=== PATIENT | female | born 1985 | race Caucasian/White ===

== ENCOUNTER → 2019-01-23 09:16 | Outpatient (CLI) | payer OTHER, SELFPAY ==
[2019-01-23 11:51] LABS: Add Manual Diff / Slide Review NO; Basophils Absolute Auto 0 /uL (0-100); Basophils Percent Auto 0.2 % (0-2); Eosinophils Absolute Auto 100 /uL (0-450); Eosinophils Percent Auto 1.1 % (2-4); Hematocrit 33.6 % (36-46); Lymphocytes Absolute Auto 1600 /uL (1100-4500); Lymphocytes Percent Auto 16.2 % (25-40); Mean Corpuscular HGB Conc 32.8 % (30-36); Mean Corpuscular Hemoglobin 29.2 PG (26-34); Mean Corpuscular Volume 89.2 fL (80-100); Monocytes Absolute Auto 800 /uL (0-900); Monocytes Percent Auto 7.9 % (3-14); Neutrophils Absolute Auto 7200 /uL (1500-7000); Neutrophils Percent Auto 74.6 % (50-75); Platelet Count 255 X10^3/uL (150-400); Red Blood Cell Count 3.77 X10^6/uL (4.0-5.2); Red Cell Distribution Width 12.9 % (11.6-14.8); White Blood Cell Count 9.7 X10^3/uL (4.5-11.0)
[2019-01-23 12:34] LABS: GTT (PREG) 1 Hour PP 50gm Dose 133 mg/dL (76-139)
[2019-01-23 15:58] LABS: Hepatitis B Surface Antigen NEGATIVE s/c (NEGATIVE); Rubella Antibody IgG 23.8 IU/mL (>15)
[2019-01-24 15:07] LABS: RPR Screen Nonreactive (Nonreactive)
== END ==
DX: Z34.83 Encounter for supervision of other normal pregnancy, third trimester (principal); Z3A.32 32 weeks gestation of pregnancy
CPT/HCPCS: 36415; 80055; 82950

== ENCOUNTER → 2019-02-12 09:22 | Outpatient (CLI) | payer OTHER, SELFPAY ==
[2019-02-13 10:29] LABS: Strep Grp B PCR NEG for Grp B Strep
== END ==
DX: Z34.83 Encounter for supervision of other normal pregnancy, third trimester (principal)
CPT/HCPCS: 87653

== ENCOUNTER → 2019-02-26 10:05 | Outpatient (CLI) | payer OTHER, SELFPAY ==
[2019-02-26 13:44] LABS: Urine N gonorrhoeae NOT DETECTED
[2019-02-26 13:49] LABS: Urine Chlamydia NOT DETECTED
== END ==
DX: Z34.82 Encounter for supervision of other normal pregnancy, second trimester (principal); Z3A.37 37 weeks gestation of pregnancy
CPT/HCPCS: 87491; 87591

== ENCOUNTER 2019-03-16 05:38 | Inpatient (IN) | payer OTHER, SELFPAY ==
[2019-03-16 06:40] LABS: Add Manual Diff / Slide Review NO; Basophils Absolute Auto 0 /uL (0-100); Basophils Percent Auto 0.5 % (0-2); Eosinophils Absolute Auto 200 /uL (0-450); Eosinophils Percent Auto 2.1 % (2-4); Hematocrit 32.1 % (36-46); Lymphocytes Absolute Auto 2400 /uL (1100-4500); Lymphocytes Percent Auto 30.6 % (25-40); Mean Corpuscular HGB Conc 34.2 % (30-36); Mean Corpuscular Volume 84.8 fL (80-100); Monocytes Absolute Auto 700 /uL (0-900); Monocytes Percent Auto 9.3 % (3-14); Neutrophils Absolute Auto 4400 /uL (1500-7000); Neutrophils Percent Auto 57.5 % (50-75); Platelet Count 240 X10^3/uL (150-400); Red Blood Cell Count 3.79 X10^6/uL (4.0-5.2); Red Cell Distribution Width 13.8 % (11.6-14.8); White Blood Cell Count 7.7 X10^3/uL (4.5-11.0)
--- NOTE | 2019-03-16 07:23 | P.HPOB_ITS ---
OB HPI Date/Time Date of admission: 03/16/19 Date Patient Seen: 03/16/19 Time Patient Seen: 07:37 History of Present Condition Chief complaint: OBSERVATION : 2 Para: 1 Estimated Date of Delivery: 03/17/19 Estimated Gestational Age (weeks): 39w6d Narrative: Jolynn Agudelo is a 34 year old at 39+6 weeks gestation. Transfer of care from [place] at 32 weeks. H/o hip dysplasia in daughter. History of Present care: good care, number of visits (6) and pounds weight gain (45) Dating criteria: LMP confirmed by 1st trimester US Ultrasounds: normal mid trimester US Obstetrical complications: none Medical complications: none Preadmission Labs Blood type: A (+) positive -: Antibody screen: negative, GBS status: negative, HBsAG: negative, HIV: negative and RPR/VDLR: negative -: Chlamydia screen: not detected and Gonorrhea screen: not detected -: Rubella: immune HCT: 33.6 HCAB: negative 1 hr GTT: 133 Prior (ies) History: 06/21/2014 at 41 weeks, 7lb 4oz female, epidural, [place], breast fed 10 months Evaluation Evaluation Baseline heart rate: 130 Variability: Moderate (11-25) monitor accelerations: Present monitor decelerations: Absent Contraction Frequency (minutes): 4 Uterine Contraction Intensity: Strong/Firm Category of Tracing: I Cervical dilation (cm): 4 Cervical effacement (%): 90 station: 0 Laboratory results: Laboratory Tests 03/16/19 06:30 WBC 7.7 RBC 3.79 L Hgb 11.0 L Hct 32.1 L MCV 84.8 MCH 29.0 MCHC 34.2 RDW 13.8 Plt Count 240 Neut % (Auto) 57.5 Lymph % (Auto) 30.6 [place] % (Auto) 9.3 Eos % (Auto) 2.1 Baso % (Auto) 0.5 Neut # (Auto) 4400 Lymph # (Auto) 2400 [place] # (Auto) 700 Eos # (Auto) 200 Baso # (Auto) 0 Non-invasive Membranes Rupture Test: positive PFS Medical History H/O abnormal cervical Papanicolaou smear (Resolved) Surgical History H/O cone biopsy of cervix (Resolved) H/O wisdom tooth extraction (Resolved) History of tonsillectomy (Resolved) Family History (Updated 03/16/19 @ 07:46 by Deborah Ely DO) Daughter Hip dysplasia Social History (Updated 03/16/19 @ 07:45 by Deborah Ely DO) marital status: number of children: 1 household members: spouse and children Smoking Status: Former smoker Family History Daughter Hip dysplasia Social History marital status: number of children: 1 household members: spouse and children Smoking Status: Former smoker Meds Home Medications Medication Instructions Recorded Confirmed Type nutritional supplement-fiber oral each PO .QD 01/22/19 03/06/19 History omeprazole magnesium 20 mg 20 mg PO DAILY 01/22/19 03/06/19 History capsule,delayed release 1 tab PO DAILY 01/22/19 03/06/19 History vitamin,calcium,zqrcwusy-eozw-wcani acid tablet Allergies Allergy/AdvReac Type Severity Reaction Status Date / Time latex AdvReac Verified 03/06/19 10:08 Review of Systems Constitutional Constitutional: Denies fatigue and Denies fever(s) Respiratory Respiratory: Denies cough Gastrointestinal Gastrointestinal: Denies nausea and Denies vomiting Endocrine Endocrine: Denies fatigue Exam Const General: healthy appearing and comfortable [facility] Head: normal to inspection Ears: hearing grossly normal bilaterally Nose: external nose normal Face and sinus: normal facial exam Mouth: oral mucosae normal Eyes General: appearance normal, both eyes and all related structures Neck Neck: normal visual inspection Resp Effort & Inspection: normal respiratory effort Auscultation: clear to auscultation bilaterally and no wheezes Cardio Rate: regular rate Rhythm: regular rhythm Manual OB Exam: dilated 4, effaced and station 0 Presentation: vertex Estimated Weight (lbs): 7 Amniotic Fluid: clear Extrem General: normal to inspection and no pedal edema Objective Labs Result Diagrams: 03/16/19 06:30 Labs: Laboratory Results - last 24 hr 03/16/19 06:30 WBC 7.7 RBC 3.79 L Hgb 11.0 L Hct 32.1 L MCV 84.8 MCH 29.0 MCHC 34.2 RDW 13.8 Plt Count 240 Neut % (Auto) 57.5 Lymph % (Auto) 30.6 [place] % (Auto) 9.3 Eos % (Auto) 2.1 Baso % (Auto) 0.5 Neut # (Auto) 4400 Lymph # (Auto) 2400 [place] # (Auto) 700 Eos # (Auto) 200 Baso # (Auto) 0 Assessment and Plan Assessment and Plan Assessment and Plan narrative: 34 year old at 39+6 weeks gestation with SROM in active labor. GBS negative. Expectant management Comfortable with epidural Anticipate
[2019-03-16] MEDS: LACTATED RINGERS 1,000 ML 125 ML IV (07:51)
[2019-03-16 08:38] VITALS: BP 109/66
[2019-03-16] MEDS: OXYTOCIN PREMIX 30 UNIT/500 ML PLAST..BAG IV (10:32)
--- NOTE | 2019-03-16 12:11 | PM.OBPRVD ---
Delivery date: 03/16/19 Delivery augmentation: pitocin Delivery monitor: external FHT Route of delivery: L&D Laceration Description: Labial (right) Delivery repair: vicryl Estimated blood loss (mL): 200 Anesthesia type: Epidural Narrative: BRIEF HISTORY: Patient is a 34-year-old at 39 weeks and 6 days who gave on 03/16/19 at []. SABRINA: 03/17/19 Hospital problems: 39weeks of STAGE I: Labor Patient presented to the center with spontaneous rupture of membranes at home at approximately 4:00 a.m. with clear fluid. She received an epidural for pain control at which point her contractions spaced out Pitocin was begun. She was complete at 10:10 a.m.. Stage I duration 5 hours 25 minutes. heart tones were category 1 throughout stage I. STAGE II: Delivery The second stage of labor lasted 1 hour and 4 minutes. Spontaneous vaginal delivery occurred at 11:14 a.m.. was vertex and SUSAN. He was immediately placed on mother's abdomen. Cord was clamped and cut after 1 minutes delay. Apgars were 9 and 9. No resuscitation of the required. STAGE III: Placenta/Cord Placenta delivered after active management with a 3 vessel cord and appeared intact. A small right labial tear was repaired in the usual fashion with 4 0 Vicryl. Hemostasis was achieved. Fundus firm 2 finger breaths below umbilicus. EBL: 200 mL. Needle and sponge counts were correct. The vagina was inspected and no items were left in situ. Baby 1: gender: Male Presentation: vertex Placenta delivery description: Spontaneous cord vessel description: 3 Vessels score (1 min): 9 score (5 min): 9
[2019-03-16] MEDS: IBUPROFEN 600 MG TABLET PO ×2 (15:18→21:28)
[2019-03-17] MEDS: IBUPROFEN 600 MG TABLET PO ×2 (02:45→09:09)
[2019-03-17] MEDS: DOCUSATE 250 MG CAPSULE PO (09:10)
--- NOTE | 2019-03-17 09:36 | PM.OBDS.1 ---
Discharge Providers Date of admission: 03/16/19 05:38 Discharge Date: 03/17/19 Consults: 03/16/19 13:14 Consult to Vehicle Body Maker Routine Comment: Discharge provider: Deborah Ely DO Summary Date Patient Seen: 03/17/19 Time Patient Seen: 08:39 Procedures: Spontaneous vaginal delivery Epidural analgesia Hospital Course: Patient is a 34-year-old G2 now P2 1 day after uncomplicated spontaneous vaginal delivery on 03/16/19. Patient presented to the center with spontaneous rupture of membranes. She received an epidural for pain control and Pitocin for augmentation. Delivery was uncomplicated to a vigorous male. A labial laceration was repaired with good hemostasis. course has been uncomplicated. She is ambulating, eating, voiding and passing gas. Bleeding is moderate. Pain well controlled with ibuprofen. Breast-feeding going well. Peripartum Data Delivery Method: Natural Vaginal Laceration description: Labial 1: Gender: Male Disposition of : home Status at Discharge Cognitive/behavioral status at discharge: at baseline, oriented Functional status at discharge: independent ambulation Overall status at discharge: patient is back to baseline Time Spent with Patient Total time spent providing and/or coordinating discharge services: Less than 30 minutes Objective Labs Result Diagrams: 03/16/19 06:30 Exam Vital Signs (past 8 hours): Temperature 97.7? blood pressure 122/70 heart rate 58 respirations 16 Narrative Exam Narrative: General: Awake and alert, no acute distress. HEENT: NCAT, EOMI, moist oral mucosa CV: Regular rate and rhythm, no murmurs, rubs or gallops Lungs: CTAB, no wheezes, rales, or rhonchi Abdomen: Soft, nontender; bowel tones active; uterus firm 2 cm below umbilicus Extremities: Warm, no edema, 2+ pedal pulses bilaterally Discharge Plan Discharge Plan Patient Disposition: Home Discharge comment: Call for fevers, severe pain or bleeding through more than a pad an hour. Discharge Med Rec/Prescriptions Prescriptions: New ibuprofen 600 mg Tablet 600 mg PO Q6HR PRN (Reason: Pain) Qty: 30 RF: 0 Continued prenat.vits,sarah,vyh-jwio-zszid tablet 1 tab PO DAILY RF: 0 nutritional supplement-fiber misc PO .QD RF: 0 omeprazole magnesium [Acid Leadership Development Consultant (omeprazole)] 20 mg capsule,delayed release(DR/EC) 20 mg PO DAILY RF: 0 Follow up/Referrals: Neftali Sorensen MD [Physician] - 6 Weeks Visit Report/Discharge Packet Visit Report Forms: Stroke Signs & Symptoms Discharge Data Attending Provider: Nixon Brown Admit Date/Time: 03/16/19 05:38
--- NOTE | 2019-03-17 09:40 | P.DS_ITS ---
Discharge Providers Date of admission: 03/16/19 05:38 Discharge Date: 03/17/19 Consults: 03/16/19 13:14 Consult to Toy Parts Former Supervisor Routine Comment: Discharge provider: Deborah Ely DO Summary Date Patient Seen: 03/17/19 Time Patient Seen: 08:39 Procedures: Spontaneous vaginal delivery Epidural analgesia Hospital Course: Patient is a 34-year-old G2 now P2 1 day after uncomplicated spontaneous vaginal delivery on 03/16/19. Patient presented to the center with spontaneous rupture of membranes. She received an epidural for pain control and Pitocin for augmentation. Delivery was uncomplicated to a vigorous male. A labial laceration was repaired with good hemostasis. course has been uncomplicated. She is ambulating, eating, voiding and passing gas. Bleeding is moderate. Pain well controlled with ibuprofen. Breast-feeding going well. Peripartum Data Delivery Method: Natural Vaginal Laceration description: Labial 1: Gender: Male Disposition of : home Status at Discharge Cognitive/behavioral status at discharge: at baseline, oriented Functional status at discharge: independent ambulation Overall status at discharge: patient is back to baseline Time Spent with Patient Total time spent providing and/or coordinating discharge services: Less than 30 minutes Objective Labs Result Diagrams: 03/16/19 06:30 Exam Vital Signs (past 8 hours): Temperature 97.7? blood pressure 122/70 heart rate 58 respirations 16 Narrative Exam Narrative: General: Awake and alert, no acute distress. HEENT: NCAT, EOMI, moist oral mucosa CV: Regular rate and rhythm, no murmurs, rubs or gallops Lungs: CTAB, no wheezes, rales, or rhonchi Abdomen: Soft, nontender; bowel tones active; uterus firm 2 cm below umbilicus Extremities: Warm, no edema, 2+ pedal pulses bilaterally Discharge Plan Discharge Plan Patient Disposition: Home Discharge comment: Call for fevers, severe pain or bleeding through more than a pad an hour. Discharge Med Rec/Prescriptions Prescriptions: New ibuprofen 600 mg Tablet 600 mg PO Q6HR PRN (Reason: Pain) Qty: 30 RF: 0 Continued prenat.vits,sarah,jam-bfbi-tacmk tablet 1 tab PO DAILY RF: 0 nutritional supplement-fiber misc PO .QD RF: 0 omeprazole magnesium [Acid Nail Technician (omeprazole)] 20 mg capsule,delayed release(DR/EC) 20 mg PO DAILY RF: 0 Follow up/Referrals: Neftali Sorensen MD [Physician] - 6 Weeks Visit Report/Discharge Packet Visit Report Forms: Stroke Signs & Symptoms Discharge Data Attending Provider: Nixon Brown Admit Date/Time: 03/16/19 05:38
[2019-03-17 10:28] VITALS: BP 109/66; PULSE 88; RESP 18; TEMP 36.6
== END 2019-03-17 14:00 | disposition home or self-care (01) | DRG 807 ==
PROVIDERS: Obstetrics & Gynecology; Visit Provider Family Medicine
DX: O70.0 First degree perineal laceration during delivery (principal); Z37.0 Single live birth; Z3A.39 39 weeks gestation of pregnancy
CPT/HCPCS: 01967; 59050; 59515; 85025; 86850; 86900; 86901; G0379; J2590

== ENCOUNTER → 2021-04-01 14:43 | Outpatient (CLI) | payer OTHER, SELFPAY ==
[2021-04-01] MEDS: COVID-19 VACC #2, MRNA(MOD) 100 MCG/0.5 ML VIAL IM (14:50)
--- NOTE | 2021-04-01 14:58 | PC.NURSE ---
Addendum entered by She Cowan R.N. 04/01/21 15:09: Patient returned at 1530 to check in before leaving. Stated she felt fine Original Note: patient brought 2 small children with her. Stated she had them with her at the first vaccine she had at [facility] in [place] and they didn't make her wait. Asked patient to wait in car after vaccine for 15 minutes, but when checked on she could not be found in the parking lot. No observation for s/s of allergic reaction.
== END ==
PROVIDERS: PCP Internal Medicine; Visit Provider Internal Medicine
DX: Z23 Encounter for immunization (principal)
CPT/HCPCS: 0012A; 91301

== ENCOUNTER → 2021-09-07 07:12 | Outpatient (CLI) | payer OTHER, SELFPAY ==
[2021-09-07 08:07] LABS: COVID19 -Nasal RAPID Negative (Negative)
== END ==
PROVIDERS: Visit Provider Physician Assistant
DX: Z20.822 Contact with and (suspected) exposure to COVID-19 (principal); J02.9 Acute pharyngitis, unspecified; R09.81 Nasal congestion; R51.9 Headache, unspecified
CPT/HCPCS: 87635

== ENCOUNTER → 2022-07-22 11:52 | Outpatient (CLI) | payer OTHER, SELFPAY ==
[2022-07-23 16:03] LABS: Candida species Negative (Negative); Gardnerella vaginalis Positive (Negative); Trichomoas vaginalis Negative (Negative)
== END ==
PROVIDERS: PCP Internal Medicine; Visit Provider Obstetrics & Gynecology
DX: N89.8 Other specified noninflammatory disorders of vagina (principal); R10.2 Pelvic and perineal pain
CPT/HCPCS: 87480; 87510; 87660

== ENCOUNTER → 2023-09-05 09:15 | Outpatient (CLI) | payer OTHER, SELFPAY ==
[2023-09-05 10:08] LABS: Miscellaneous to LabCorp NATERA
[2023-09-05 11:04] LABS: Add Manual Diff / Slide Review NO; Basophils Absolute Auto 0 /uL (0-100); Basophils Percent Auto 0.2 % (0-2); Eosinophils Absolute Auto 100 /uL (0-450); Hematocrit 35.7 % (36-46); Hemoglobin 12.3 g/dL (12.0-16.0); Lymphocytes Absolute Auto 1700 /uL (1100-4500); Lymphocytes Percent Auto 19.7 % (25-40); Mean Corpuscular HGB Conc 34.5 % (30-36); Mean Corpuscular Hemoglobin 30.4 PG (26-34); Mean Corpuscular Volume 88.2 fL (80-100); Monocytes Absolute Auto 500 /uL (0-900); Monocytes Percent Auto 5.7 % (3-14); Neutrophils Absolute Auto 6500 /uL (1500-7000); Neutrophils Percent Auto 73.4 % (50-75); Platelet Count 254 X10^3/uL (150-400); Red Blood Cell Count 4.05 X10^6/uL (4.0-5.2); Red Cell Distribution Width 13.3 % (11.6-14.8); White Blood Cell Count 8.8 X10^3/uL (4.5-11.0)
[2023-09-05 15:19] LABS: Urine N gonorrhoeae NOT DETECTED
[2023-09-05 15:21] LABS: Hepatitis B Surface Antigen NEGATIVE s/c (NEGATIVE); Rubella Antibody IgG 33.5 IU/mL (>15)
[2023-09-05 15:36] LABS: HIV 1 & 2 Ab/Ag 4th Gen Combo NEGATIVE (NEGATIVE); Hep C Virus Ab w/Reflex Quant NEGATIVE s/c (NEGATIVE)
[2023-09-05 15:37] LABS: Urine Chlamydia NOT DETECTED
[2023-09-06 08:26] LABS: Varicella IgG Antibody 394 index (Immune >165)
[2023-09-07 03:15] LABS: RPR Screen Non Reactive (Non Reactive)
== END ==
PROVIDERS: Referring Provider Student in an Organized Health Care Education/Training Program; Visit Provider Student in an Organized Health Care Education/Training Program
DX: Z34.81 Encounter for supervision of other normal pregnancy, first trimester (principal); Z34.80 Encounter for supervision of other normal pregnancy, unspecified trimester; Z34.82 Encounter for supervision of other normal pregnancy, second trimester; Z3A.10 10 weeks gestation of pregnancy
CPT/HCPCS: 36415; 80055; 86787; 86803; 86850; 86900; 86901; 87086; 87389; 87491; 87591

== ENCOUNTER → 2023-10-06 14:36 | Outpatient (CLI) | payer OTHER, SELFPAY ==
[2023-10-11 09:36] LABS: AFP Value 40.3 ng/mL (.); Gest Age on Col Date 14.9 weeks (.); Gestational Age EDD (.); Insulin Dep Diabetes No (.); OSBR Risk 1IN See interpretation. (.); Results Report (.); Test Results See interpretation. (.)
== END ==
PROVIDERS: PCP Internal Medicine; Referring Provider Student in an Organized Health Care Education/Training Program; Visit Provider Student in an Organized Health Care Education/Training Program
DX: Z34.82 Encounter for supervision of other normal pregnancy, second trimester (principal); Z3A.14 14 weeks gestation of pregnancy
CPT/HCPCS: 36415; 82105

== ENCOUNTER → 2023-11-11 15:03 | Outpatient (CLI) | payer OTHER, SELFPAY ==
--- NOTE | 2023-11-11 15:06 | DI.US.S_ITS ---
PROCEDURE: US OB >= 14 WEEKS FETUS INDICATIONS: ANATOMY OUTSIDE/PRIOR DATING DATA: Last menstrual period (LMP): 06/24/2023. LMP-based estimated date of delivery (SABRINA): 03/30/2024. First dating scan (date and location): 09/05/2023. Estimated date of delivery (SABRINA) from first dating scan: 04/01/2024. The calculations are made using the clinical SABRINA of 03/30/2024. TECHNIQUE: Real-time scanning was performed of the fetus, with image documentation and biometric measurements. Endovaginal scanning: Not performed COMPARISON: None. FINDINGS: General: A single living intrauterine gestation is present. Presentation: Vertex. Placenta: Placental position is anterior , without previa. Amniotic fluid index: 13.3 cm, normal range is 5-24 cm. Single deepest vertical pocket is 4.2 cm. heart rate: 137 beats per minute. Maternal cervical canal: 3.3 cm long. Normal lower limit is 2.5 cm. biometrics: Biparietal diameter: 4.8 cm, 20 weeks 3 days Head circumference: 17.0 cm, 19 weeks 4 days Abdominal circumference: 14.4 cm, 20 weeks 1 day Femur length: 3.3 cm, 20 weeks 3 days Clinically estimated gestational age: 20 weeks 0 days Composite gestational age from present scan: 20 weeks 1 day Estimated weight and percentile: 341 g, 59th percentile Anatomic survey: Neuro: Ventricles are non-dilated at less than 10 mm. Cisterna magna is normal at 3-11 mm. Cerebellum is normal in size and morphology. Nuchal skin fold: Normal at less than 6 mm between 14-21 weeks gestational age. Face: Nose and lips, facial profile are normal. Spine: No evidence for spina bifida. Heart: 4-chambered heart is present, with normal ventricular outflow tracts. Diaphragm: Diaphragm is intact. Stomach: Left-sided stomach is present. Kidneys: No hydronephrosis. Normal is less than 5 mm in 2nd trimester, less than 7 mm in 3rd trimester. Cord: 3-vessel cord has orthotopic insertion. Bladder: Normal in size. Extremities: All 4 extremities identified. Maternal anatomy: In the mid left uterus, there is a fibroid measuring 4.8 x 4.4 x 3.6 cm adjacent to the left placental edge. IMPRESSION: 1. Single live intrauterine consistent with 20 weeks and 1 day. 2. Normal anatomic survey. 3. There is a 4.8 cm uterine fibroid in the mid left uterus, adjacent to the left placental edge. We strive to produce accurate, complete, and clear reports of imaging services. To assist us in improving patient care, this report was composed using standard report templates and voice recognition software. Therefore, it may contain abnormal punctuation, insertions and/or omissions. Occasional wrong-word or sound-alike substitutions may occur. Though we review the report and make efforts to correct it, we do recommend that the report be read carefully in proper context to recognize any text inaccuracies. Dictated by: Caesar Burroughs M.D. on 11/12/2023 at 11:18 Approved by: Caesar Burroguhs M.D. on 11/12/2023 at 11:21
== END ==
PROVIDERS: PCP Internal Medicine; Referring Provider Student in an Organized Health Care Education/Training Program; Visit Provider Student in an Organized Health Care Education/Training Program
DX: O34.12 Maternal care for benign tumor of corpus uteri, second trimester (principal); D25.9 Leiomyoma of uterus, unspecified; Z3A.20 20 weeks gestation of pregnancy
CPT/HCPCS: 76811

== ENCOUNTER → 2023-11-16 16:34 | Outpatient (CLI) | payer OTHER, SELFPAY ==
[2023-11-18 21:31] LABS: AFP Value 124.6 ng/mL (.); Gest Age on Col Date 21.4 weeks (.); Gestational Age Ultrasound (.); Insulin Dep Diabetes No (.); OSBR Risk 1IN 1630 (.); Results Report (.); Test Results *Screen Negative* (.)
== END ==
LOC: LAB 16:35
PROVIDERS: PCP Internal Medicine; Referring Provider Student in an Organized Health Care Education/Training Program; Visit Provider Student in an Organized Health Care Education/Training Program
DX: O09.529 Supervision of elderly multigravida, unspecified trimester (principal); Z3A.19 19 weeks gestation of pregnancy
CPT/HCPCS: 36415; 82105

== ENCOUNTER → 2023-12-29 09:34 | Outpatient (CLI) | payer OTHER, SELFPAY ==
[2023-12-29 12:04] LABS: Hematocrit 31.6 % (36-46); Hemoglobin 10.9 g/dL (12.0-16.0)
[2023-12-29 12:20] LABS: GTT (PREG) 1 Hour PP 50gm Dose 104 mg/dL (76-139)
== END ==
LOC: LAB 09:35
PROVIDERS: PCP Internal Medicine; Referring Provider Student in an Organized Health Care Education/Training Program; Visit Provider Student in an Organized Health Care Education/Training Program
DX: Z34.82 Encounter for supervision of other normal pregnancy, second trimester (principal)
CPT/HCPCS: 36415; 82950; 85014; 85018

== ENCOUNTER → 2024-01-26 10:20 | Outpatient (CLI) | payer OTHER, SELFPAY ==
[2024-01-26 10:57] LABS: Hematocrit 31.4 % (36-46)
== END ==
PROVIDERS: PCP Internal Medicine; Referring Provider Student in an Organized Health Care Education/Training Program; Visit Provider Student in an Organized Health Care Education/Training Program
DX: O99.019 Anemia complicating pregnancy, unspecified trimester (principal)
CPT/HCPCS: 36415; 85014; 85018

== ENCOUNTER → 2024-02-13 12:40 | Outpatient (CLI) | payer OTHER, SELFPAY ==
[2024-02-13 13:25] LABS: Appearance Urine UA CLEAR; Bilirubin Urine UA NEGATIVE (NEGATIVE); Color Urine UA YELLOW; Glucose Urine UA NEGATIVE (Negative); Ketones Urine UA NEGATIVE (NEGATIVE); Leukocyte Esterase Urine UA NEGATIVE (NEGATIVE); Nitrite Urine UA NEGATIVE (Negative); Occult Blood Urine UA 1+ (Negative); Protein Urine UA NEGATIVE (Negative); Specific Gravity Urine UA <=1.005 (1.000-1.035); Urobilinogen Urine UA 0.2 E.U./dL (0.2)
[2024-02-13 13:43] LABS: RBC Urine 5-10/HPF (0-5/HPF); Squamous Epithelial Cell Urine 5-10 /HPF (0-5/HPF); Urine Volume 10mL (spun)
[2024-02-13 13:44] LABS: Bacteria Urine Few (2-10); Culture Indicated Urine Cult Not Indicated; WBC Urine 0-1/HPF (0-5/HPF)
== END ==
PROVIDERS: PCP Internal Medicine; Referring Provider Student in an Organized Health Care Education/Training Program; Visit Provider Student in an Organized Health Care Education/Training Program
DX: Z34.90 Encounter for supervision of normal pregnancy, unspecified, unspecified trimester (principal); M54.50 Low back pain, unspecified; R35.0 Frequency of micturition
CPT/HCPCS: 81001

== ENCOUNTER → 2024-02-14 16:08 | Outpatient (CLI) | payer OTHER, SELFPAY | PROVIDERS: PCP Internal Medicine; Visit Provider Student in an Organized Health Care Education/Training Program | DX: R30.0 Dysuria (principal) | CPT/HCPCS: 87086 ==

== ENCOUNTER → 2024-02-24 11:01 | Outpatient (CLI) | payer OTHER, SELFPAY | PROVIDERS: PCP Internal Medicine; Visit Provider Obstetrics & Gynecology | DX: R82.998 Other abnormal findings in urine (principal) | CPT/HCPCS: 87086 ==

== ENCOUNTER 2024-03-01 10:56 | Outpatient (CLI) | payer OTHER, SELFPAY ==
--- NOTE | 2024-03-01 11:26 | PM.OBTRLD ---
Visit Information Visit Information Date of evaluation: 03/01/24 Primary OB Provider: Wendi Gupta Reason for Evaluation: Yes non-stress test [facility] Medical History (Updated 01/26/24 @ 10:12 by Wendi Gupta DO) Hip dysplasia History of cervical cone biopsy affecting care of mother, antepartum Chicken pox (~1991) H/O abnormal cervical Papanicolaou smear Surgical History [place] teeth extracted H/O cone biopsy of cervix History of tonsillectomy H/O wisdom tooth extraction Family History Daughter Hip dysplasia Grandfather Cancer Grandmother Breast cancer Grandfather Lung cancer Grandmother Hyperlipidemia Bipolar disorder Suicide Father Hip dysplasia Daughter Hip dysplasia Mother Stillbirth ABO incompatibility in Social History (System 08/25/23 @ 16:03 by Shahrzad Angelo) marital status: number of children: 2 household members: spouse and children lives independently: Yes caregiver/support person: Yes housing: house pets and animals: No education level: master's degree ([employer], engineering and business administration) 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) current occupational exposures/hazards: No (not currently or until after delivery) special katherin needs: No travel history: recent (Domestic, [place]) seatbelt use: always helmet use: Yes water heater temp set < 120 deg: Yes working smoke detector in home: Yes fire extinguisher in home: Yes carbon monox detector in home: Yes firearms in home: No do you feel safe at home: Yes Smoking Status: Never smoker second hand exposure: No alcohol intake: former (occasionally when not ) substance use type: does not use during the past year weight has: remained stable well-balanced diet: daily or most days daily servings fruits/ve or more times/day caffeine: Yes (aware of 200mg limit) Type(s) of exercise: walking, other (hiking) and yoga Evaluation Evaluation Baseline heart rate: 140 Variability: Moderate (11-25) monitor accelerations: Present Monitor Decelerations: Absent Category of Tracing: Reactive Diagnosis, Plan/Disposition Final Diagnosis (1) Advanced maternal age (AMA) in : Status: Acute Plan/Disposition Plan: Follow up in clinic as scheduled OB Disposition: home
== END 2024-03-01 11:35 | disposition home or self-care (01) ==
LOC: LABOR 11:35 → OB 03-05 10:36
PROVIDERS: PCP Internal Medicine; Referring Provider Obstetrics & Gynecology; Visit Provider Obstetrics & Gynecology
DX: Z36.9 Encounter for antenatal screening, unspecified (principal)
CPT/HCPCS: 59025; G0378; G0379

== ENCOUNTER 2024-03-02 10:08 | Inpatient (IN) | payer OTHER, SELFPAY ==
[2024-03-02 11:44] VITALS: BP 109/64
[2024-03-02 12:01] LABS: Add Manual Diff / Slide Review NO; Basophils Absolute Auto 0 /uL (0-100); Basophils Percent Auto 0.2 % (0-2); Eosinophils Absolute Auto 100 /uL (0-450); Hematocrit 35.5 % (36-46); Hemoglobin 12.1 g/dL (12.0-16.0); Lymphocytes Absolute Auto 2200 /uL (1100-4500); Lymphocytes Percent Auto 21.3 % (25-40); Mean Corpuscular HGB Conc 34.1 % (30-36); Mean Corpuscular Hemoglobin 30.1 PG (26-34); Mean Corpuscular Volume 88.4 fL (80-100); Monocytes Absolute Auto 800 /uL (0-900); Monocytes Percent Auto 7.4 % (3-14); Neutrophils Absolute Auto 7300 /uL (1500-7000); Neutrophils Percent Auto 70.1 % (50-75); Platelet Count 229 X10^3/uL (150-400); Red Blood Cell Count 4.01 X10^6/uL (4.0-5.2); Red Cell Distribution Width 13.8 % (11.6-14.8); White Blood Cell Count 10.4 X10^3/uL (4.5-11.0)
[2024-03-02 12:03] LABS: Strep Grp B PCR NEG for Grp B Strep
--- NOTE | 2024-03-02 12:16 | PM.OBHP.1 ---
OB HPI Date/Time Date of admission: 03/02/24 Date Patient Seen: 03/02/24 Time Patient Seen: 11:30 History of Present Condition Chief complaint: rupture of membranes : 4 Para: 2 Estimated Date of Delivery: 03/30/24 Estimated Gestational Age (weeks): 36+0 Narrative: Jolynn Agudelo is a 39 year old female who presented today to L&D for rupture of membranes at 9:30 a.m. this morning. She reports occasional contractions, with no vaginal bleeding or decreased movement. Indications Other reason(s) for admission: spontaneous rupture of membranes History of Present care: good care Dating criteria: LMP confirmed by 1st trimester US Ultrasounds: normal mid trimester US Obstetrical complications: none Medical complications: none Narrative: Mild anemia 10.231.3 AMA- [x] cfDNA- neg XX; [x] AFP - neg Pt and daughter both w/ hip dysplasia at , family predisposition (resolved w/ bracing) Hx LEEP/cone biopsy prior to childbearing, no issues w/ previous pregnancies/deliveries; last pap ASCUS/HPV neg 01/2022 (due 2024) Primary language Swedish, but fluent in [place] Eliezer Assigned to Alonso Preadmission Labs Blood type: A (+) positive -: Antibody screen: negative, Cystic fibrosis screen: unknown, GBS status: negative, HBsAG: negative, HIV: negative, HSV 1: unknown, HSV 2: unknown and RPR/VDLR: negative -: Chlamydia screen: not detected and Gonorrhea screen: not detected -: Rubella: immune and Varicella: immune HCT: 31.3 HCAB: negative PAP: Normal Cell-free DNA: Low risk 1 hr GTT: 104 Evaluation Evaluation Baseline heart rate: 140 Variability: Moderate (11-25) monitor accelerations: Present Monitor Decelerations: Absent Status: Category l Dilation (cm): 4 Effacement (%): 70 station: -2 Non-invasive Membranes Rupture Test: positive [facility] Medical History (Updated 01/26/24 @ 10:12 by Wendi Gupta DO) Hip dysplasia History of cervical cone biopsy affecting care of mother, antepartum Chicken pox (~1991) H/O abnormal cervical Papanicolaou smear Surgical History [place] teeth extracted H/O cone biopsy of cervix History of tonsillectomy H/O wisdom tooth extraction Family History Daughter Hip dysplasia Grandfather Cancer Grandmother Breast cancer Grandfather Lung cancer Grandmother Hyperlipidemia Bipolar disorder Suicide Father Hip dysplasia Daughter Hip dysplasia Mother Stillbirth ABO incompatibility in Social History (System 08/25/23 @ 16:03 by Shahrzad Angelo) marital status: number of children: 2 household members: spouse and children lives independently: Yes caregiver/support person: Yes housing: house pets and animals: No education level: master's degree ([employer], engineering and business administration) 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) current occupational exposures/hazards: No (not currently or until after delivery) special katherin needs: No travel history: recent (Domestic, [place]) seatbelt use: always helmet use: Yes water heater temp set < 120 deg: Yes working smoke detector in home: Yes fire extinguisher in home: Yes carbon monox detector in home: Yes firearms in home: No do you feel safe at home: Yes Smoking Status: Never smoker second hand exposure: No alcohol intake: former (occasionally when not ) substance use type: does not use during the past year weight has: remained stable well-balanced diet: daily or most days daily servings fruits/ve or more times/day caffeine: Yes (aware of 200mg limit) Type(s) of exercise: walking, other (hiking) and yoga Meds Home Medications and Allergies Home Medications Medication Instructions Recorded Confirmed Type ascorbic acid (vitamin C) 1,000 mg 1 g PO DAILY 08/25/23 03/02/24 History tablet cholecalciferol (vitamin D3) 50 50 mcg PO DAILY 08/25/23 03/02/24 History mcg (2,000 unit) capsule ferrous gluconate 225 mg (27 mg 225 mg PO DAILY 08/25/23 03/02/24 History iron) tablet (Fergon) folic acid 400 mcg tablet 0.4 mg PO DAILY 08/25/23 03/02/24 History vitamin B complex 1 tab PO DAILY 08/25/23 03/02/24 History Allergies Allergy/AdvReac Type Severity Reaction Status Date / Time Latex, Natural Rubber Allergy Intermediate Rash Verified 03/02/24 12:27 penicillin G AdvReac Severe Rash, pain Verified 03/02/24 12:27 in stomach, swelling latex AdvReac Verified 03/02/24 12:27 Review of Systems Review of Systems ROS: Yes All systems reviewed with the patient and are negative except as otherwise documented OB Exam Vital signs Blood Pressure: 106/59 Pulse Rate: 81 Temperature: 96.6 F HENMT Head: normal to inspection Resp Effort & Inspection: normal respiratory effort and able to speak in complete sentences Cardio Rate: regular rate Rhythm: regular rhythm Extremities Lower extremity: Yes normal to inspection GI Other: gravid, nontender, nondistended Presentation: vertex (Per RN exam) Objective Labs 03/02/24 11:35 Labs: Laboratory Results - last 24 hr 03/02/24 03/02/24 10:20 11:35 WBC 10.4 RBC 4.01 Hgb 12.1 Hct 35.5 L MCV 88.4 MCH 30.1 MCHC 34.1 RDW 13.8 Plt Count 229 Neut % (Auto) 70.1 Lymph % (Auto) 21.3 L [place] % (Auto) 7.4 Eos % (Auto) 1.0 L Baso % (Auto) 0.2 Neut # (Auto) 7300 H Lymph # (Auto) 2200 [place] # (Auto) 800 Eos # (Auto) 100 Baso # (Auto) 0 Group B Strep (PCR) Neg for grp b strep Assessment and Plan Assessment and Plan Assessment and Plan narrative: 39yo at 36+0 wks admitted in active labor. -CBC, T&S on admission -continuous EFM -epidural PRN -GBS PCR negative on admission, however given risk factor of PPROM, discussed with pt treating with clindamycin given her PCN allergy -PPH risk low -VTE risk low, SCDs with epidural -given her mild ctx at this point, recommended starting augmentation with pitocin -anticipate L&D Counseling: Common procedures and interventions related to the management of were explained to the patient, including assistance at vaginal delivery with episiotomy, vacuum, or forceps, use of medications to stop premature labor or induce labor, and assessment including auscultation (listening to the heart), use of electronic monitoring (external and / or internal), and use of scalp electrode and/or intrauterine pressure catheter.? It was also explained that approximately 20-30% of mothers have a need for delivery during their labor course. It was explained to the patient that , labor and delivery are ordinarily normal physiological events and can be expected to provide a healthy outcome for mother and baby in the majority of cases. However, there are complications that may arise during , labor, and delivery, such as: hemorrhage requiring administration of blood and/or blood products, surgical intervention, possibly even hysterectomy for life-saving purposes; possibility of infection requiring antibiotics, prolonged hospital stay, and rarely surgical intervention; possibility of blood clots;? possibility of retained products of conception requiring surgical intervention;? possibility of serious tears or injury to the vagina, cervix, perineum, or rectum;? possibility of injury to abdominal structures if delivery is required;? and rarely maternal or may occur. Time Spent with Patient Total time spent with greater than 50% in coordination of care (as documented) at patient's floor/unit and/or counseling patient:: 15-24 minutes
[2024-03-02 13:11] VITALS: BP 106/59; PULSE 81
[2024-03-02 14:08] VITALS: TEMP 35.9
[2024-03-02] MEDS: CLINDAMYCIN 900 MG/50 ML PIGGYBACK 50 MG IV (14:50)
[2024-03-02] MEDS: LACTATED RINGERS 1,000 ML 100 ML IV ×2 (14:50→17:14)
[2024-03-02] MEDS: OXYTOCIN PREMIX 30 UNIT/500 ML PLAST..BAG IV (17:13)
--- NOTE | 2024-03-02 17:18 | PM.AN.REGBLK ---
Regional Block Pre-procedure Procedure: Continuous Lumbar Epidural for L&D (with planned dural puncture for increased pain control) Attending OB provider: Wendi Gupta PMH/ROS narrative: 39yo female at 36 weeks 0 days with PROM requesting labor epidural. See pre-anesthesia assessment for further details. ASA Class: II Labs: Hct 35.5 % (36-46) L 03/02/24 11:35 Plt Count 229 X10^3/uL (150-400) 03/02/24 11:35 Medications: Current Medications Generic Name Dose Route Start Last Admin Trade Name Freq PRN Reason Stop Dose Admin Butorphanol Tartrate 0.5 mg 03/02/24 17:30 Butorphanol 1 Mg/Ml Vial IV 03/03/24 17:31 Q30MIN HELEN Butorphanol Tartrate 0.5 mg 03/02/24 17:16 Butorphanol 1 Mg/Ml Vial IV 03/03/24 17:17 Q3HR PRN PRURITUS Calcium Carbonate 1,000 mg 03/02/24 11:39 Calcium Carbonate 500 Mg Tab PO Q4HR PRN Dyspepsia Carboprost Tromethamine 250 mcg 03/02/24 11:39 Carboprost 250 Mcg/Ml Ampul IM Q90M PRN Bleeding Diphenhydramine HCl 25 mg 03/02/24 17:15 Diphenhydramine 50 Mg/Ml Vial IV Q10M PRN Pruritis Diphenhydramine HCl 25 mg 03/02/24 17:16 Diphenhydramine 50 Mg/Ml Vial IV 03/03/24 17:17 Q3HR PRN PRURITUS Ephedrine Sulfate 10 mg 03/02/24 16:04 Ephedrine 50 Mg/Ml Vial IV Q5M PRN Blood pressure decrease more than 20% of baseline. Fentanyl 50 mcg 03/02/24 11:39 Fentanyl 100 Mcg/2 Ml Inj IV Q1H PRN Pain, Moderate (4-6) Lactated Ringer's 1,000 mls @ 100 mls/hr 03/02/24 11:45 03/02/24 17:14 Lactated Ringers IV 100 mls/hr CONT HELEN Administration Oxytocin/Lactated Ringer's 30 unit in 500 mls @ 200 mls/hr 03/02/24 11:39 Oxytocin Premix IV CONT PRN Bleeding Protocol Tranexamic Acid 1,000 mg/ 100 mls @ 200 mls/hr 04/12/24 11:39 Sodium Chloride IV NOW PRN Bleeding Oxytocin/Lactated Ringer's 30 unit in 500 mls @ 2 mls/hr 03/02/24 11:45 03/02/24 17:13 Oxytocin Premix IV 1 milliunit/min TITRATE HELEN 1 mls/hr Administration Protocol 2 MILLIUNIT/MIN Clindamycin Phosphate 900 mg in 50 mls @ 50 mls/hr 03/02/24 15:00 03/02/24 14:50 Cleocin IV 50 mls/hr Q8H HELEN Administration FENT 2MCG/ML BUPIV 0.125% EPI 200 mcg in 100 mls @ 6 mls/hr 03/02/24 16:15 Fentanyl/Bupiv/Ns 2mcg/Ml - 0.125% EPIDURAL CONT HELEN Lidocaine HCl 20 ml 03/02/24 11:39 Lidocaine 1% 20 Ml INJ INTRA-OP PRN Post Delivery Methylergonovine Maleate 0.2 mg 03/02/24 11:39 Methylergonovine 0.2 Mg Tablet PO Q6HR PRN Heavy Bleeding Methylergonovine Maleate 0.2 mg 03/02/24 11:39 Methylergonovine 0.2 Mg/Ml Vial IM NOW PRN Bleeding Metoclopramide HCl 10 mg 03/02/24 17:16 Metoclopramide 10 Mg/2 Ml Inj IV 03/03/24 17:16 Q4H PRN Nausea Misoprostol 800 mcg 03/02/24 11:39 Misoprostol 200 Mcg Tablet IN NOW PRN Bleeding Misoprostol 400 mcg 03/02/24 11:39 Misoprostol 200 Mcg Tablet SL NOW PRN Bleeding Nalbuphine HCl 2.5 mg 03/02/24 17:15 Nalbuphine 20 Mg/Ml Ampul IV Q10M PRN Pruritis Nalbuphine HCl 5 mg 03/02/24 17:16 Nalbuphine 20 Mg/Ml Ampul IV Q6H PRN Pruritus Naloxone HCl 0.2 mg 03/02/24 11:39 Naloxone 0.4 Mg/Ml Vial IV Q2MIN PRN Opiate Reversal Naloxone HCl 0.4 mg 03/02/24 17:16 Naloxone 0.4 Mg/Ml Vial IV Q2MIN PRN Opiate Reversal Ondansetron HCl 4 mg 03/02/24 11:39 Ondansetron 4 Mg/2 Ml Inj IV Q4HR PRN Nausea And Vomiting Ondansetron HCl 4 mg 03/02/24 17:16 Ondansetron 4 Mg/2 Ml Inj IV 03/03/24 17:16 Q6HR PRN Nausea Oxytocin 10 unit 03/02/24 11:39 Oxytocin 10 Unit/Ml Vial IM NOW PRN Bleeding Allergies: Allergies Allergy/AdvReac Type Severity Reaction Status Date / Time Latex, Natural Rubber Allergy Intermediate Rash Verified 03/02/24 12:27 penicillin G AdvReac Severe Rash, pain Verified 03/02/24 12:27 in stomach, swelling latex AdvReac Verified 03/02/24 12:27 Procedure Insertion date: 03/02/24 Insertion time: 15:45 Prep/Local: 1% lidocaine (Chloraprep) Interspace: L3-4 Patient position: sitting Needle: 18 gauge Hustead Loss of resistance with: saline RACHELL at (cm): 5 Catheter placed at SKIN (cm): 12 Catheter in SPACE (cm): 7 Insertion: Yes CSF, No Blood, Yes Paresthesia with insertion, Yes Paresthesia with injection and No Test dose reaction Initial Medications TEST DOSE time: 15:46 TEST DOSE: 1.5% lidocaine with epinephrine 1:200k (mL): 3 BOLUS DOSE time: 15:48 BOLUS DOSE (mL): 2 BOLUS DOSE med: other (same as test dose) Infusion INFUSION: 0.125% bupivacaine and with fentanyl 2 mcg/mL Initial rate (mL/hr): 8 Subsequent interventions: 17:45 Checked on pt. She is smiling and appears comfortable. She apparently feels her contractions but denies any pain with them. Has not used PCEA button. She moves BLE but demonstrates that RLE is heavier and less mobile than LLE. Discussed with her and her RNs that she should be repositioned with left side down for a while to even out the epidural. Did not increase rate as pt appears so comfortable. However, pitocin is only at 1; going up to 2 shortly and higher overnight. Will adjust rate prn. KR Post-procedure Anesthesia date START: 03/02/24 Anesthesia time START: 15:40 Anesthesia date END: 03/03/24 Anesthesia time END: 00:25 Post-procedure Anesthesia Assessment: Yes CV function: HR/BP stable, Yes Resp function: RR/sat/airway adequate, Yes Post-op hydration adequate, Yes Pain control adequate, Yes Nausea & vomiting absent, Yes Temperature > 36 C, Yes Mental status appropriate and No Anesthesia complications
[2024-03-02] MEDS: ePHEDrine 50 MG/ML VIAL 10 MG IV (18:13)
[2024-03-02] MEDS: diphenhydrAMINE 50 MG/ML VIAL 25 MG IV ×2 (18:25→19:52)
[2024-03-02] MEDS: FENT 2MCG/ML BUPIV 0.125% EPI 200 MCG/100 ML PLAST..BAG 6 MCG EPIDURAL (22:52)
--- NOTE | 2024-03-03 00:39 | P.PCNOB_ITS ---
Events: Labor < 37 wks, Labor Augmentation and Premature Rupture Membrane Labor & Delivery Delivery date: 03/03/24 Intrapartal Events: None Delivery augmentation: pitocin Delivery monitor: external FHT Route of delivery: L&D Laceration Description: Labial (right) Delivery repair: vicryl Quantitative Blood Loss: 360 Anesthesia Type: Epidural Narrative: The patient progressed to C/C/+1 with pitocin augmentation and epidural anes thesia. After approximately 30min of maternal pushing efforts, the delivered in OP position and restituted ROT. The anterior shoulder delivered with gentle downward pressure. The posterior shoulder and rest of body delivered with ease. The cord was doubly clamped and cut after a 60sec delay with the infant placed on maternal abdomen. The placenta delivered spontaneously and was intact with a 3-vessel cord. The fundus was noted to be firm with bimanual massage and pitocin. Inspection of the cervix, vagina, and perineum was notable for a right labial laceration. Repair was performed using 4-0 Vicryl in a simple interrupted suture. At the end of the repair, all tissues noted to be hemostatic. All sponges were removed from the vagina, and lap/instrument counts were correct. The patient tolerated delivery well and remained in the labor room with the infant at the bedside. [place] Baby 1: gender: Female Presentation: vertex Position: Occiput Posterior score (1 min): 8 score (5 min): 9 weight: 6 lb 15.889 oz Plan for aftercare: Routine care
[2024-03-03] MEDS: diphenhydrAMINE 50 MG/ML VIAL 25 MG IV (04:21)
[2024-03-03] MEDS: ACETAMINOPHEN 325 MG TABLET 650 MG PO ×4 (04:21→21:37)
[2024-03-03] MEDS: IBUPROFEN 600 MG TABLET PO ×4 (04:22→21:37)
[2024-03-03] MEDS: PRENATAL VIT,CALC/IRON/FOLIC 1 TABLET 1 TAB PO (08:43)
[2024-03-03] MEDS: DOCUSATE 100 MG CAPSULE PO ×2 (08:43→17:57)
[2024-03-03] MEDS: OXYCODONE IR 5 MG TABLET PO ×2 (13:25→23:23)
--- NOTE | 2024-03-03 13:45 | PM.OBPN.1 ---
Subjective - OB Subjective Patient comments: no complaints, pain well controlled and tolerating diet baby status: nursing well feeding status: exclusively breast feeding Narrative: 39yo [id number] PPD#1 s/p at 36+1wks after PPROM. She is feeling well with minimal complaints today. Does have some significant cramping during that she desires additional pain medication for. Otherwise ambulating, tolerating regular diet, voiding spontaneously, with appropriate lochia. Date Patient Seen: 03/03/24 Time Patient Seen: 13:47 Exam Vital Signs (past 8 hours): vitals reviewed in OBIX, within normal parameters Const General: comfortable and No acute distress Resp Effort & Inspection: normal respiratory effort and able to speak in complete sentences GI Inspection: normal to inspection Other: fundus firm at U-2 Skin General: no rashes or lesions noted Objective Labs 03/02/24 11:35 Assessment & Plan Plan day: 1 plan OB: routine care Comments: Plan for discharge tomorrow. Time Spent With Patient Time: Total time spent is greater than 50% in coordination of care (as documented) at patient's floor/unit and/or counseling patient: Time with patient: 15-24 minutes
[2024-03-04 00:51] VITALS: BP 108/70; PULSE 77; RESP 17; TEMP 36.9
[2024-03-04] MEDS: IBUPROFEN 600 MG TABLET PO ×2 (03:19→09:04)
[2024-03-04] MEDS: ACETAMINOPHEN 325 MG TABLET 650 MG PO ×2 (03:20→09:03)
[2024-03-04] MEDS: DOCUSATE 100 MG CAPSULE PO (09:03)
[2024-03-04] MEDS: PRENATAL VIT,CALC/IRON/FOLIC 1 TABLET 1 TAB PO (09:03)
--- NOTE | 2024-03-04 11:45 | PM.OBDS.1 ---
Discharge Providers Provider Date of admission: 03/02/24 10:08 Discharge Date: 03/04/24 Primary care physician: Daniel Alicea MD Consults: 03/02/24 11:39 Consult to Anesthesiology Urgent Comment: Consulting Provider: Anesthesiologist Reason for consultation: Epidural 03/04/24 00:37 Consult to Inspection Supervisor Routine Comment: Discharge provider: Wendi Gupta DO Summary Hospital Course Date Patient Seen: 03/04/24 Time Patient Seen: 11:46 Diagnoses: tavarez gestation at 36+1wks prelabor rupture of membranes Hospital Course: 39yo [id number] admitted at 36+0wks with PPROM. Her labor course was augmented with pitocin. She progressed to an uncomplicated spontaneous vaginal delivery at 36+1wks, productive of a viable female with APGARs 8/9. Her course was uncomplicated. On day #2, she was ambulating, tolerating regular diet, voiding spontaneously with minimal lochia. Her pain was well controlled with oral medications, thus she was discharged to home on day #2. Peripartum Data Delivery Method: Natural Vaginal Laceration Description: Labial Procedures: External monitoring Pitocin augmentation Epidural anesthesia Spontaneous vaginal delivery Obstetric laceration repair complications: none Discharge Diagnosis (1) labor with delivery: Status: Acute (2) Vaginal delivery: Status: Acute (3) Advanced maternal age (AMA) in : Status: Acute Status at Discharge Cognitive/behavioral status at discharge: oriented Functional status at discharge: independent ambulation Overall status at discharge: patient is progressing back to baseline Time Spent with Patient Time attestation: Total time spent providing and/or coordinating discharge services: Time spent: Less than 30 minutes Objective Labs 03/02/24 11:35 Exam Vital Signs (past 8 hours): vitals reviewed in OBIX, within normal parameters Const General: cooperative, healthy appearing, comfortable and No acute distress Resp Effort & Inspection: normal respiratory effort GI Inspection: normal to inspection Other: fundus firm and nontender at U-2 Skin General: no rashes or lesions noted Neuro General: patient alert and patient awake Extrem General: normal to inspection, no pedal edema and no calf tenderness Psych Mood: congruent mood Affect: normal affect Discharge Plan Discharge Plan Patient Disposition: Home Provider Discharge Comment: Take ibuprofen 600mg every 6 hrs and acetaminophen 650mg every 6hrs as needed for pain or cramping. Avoid placing anything in the vagina for 6 weeks. Discharge orders & Medications Prescriptions: Continued folic acid 400 mcg tablet 0.4 mg PO DAILY cholecalciferol (vitamin D3) 50 mcg (2,000 unit) capsule 50 mcg PO DAILY ascorbic acid (vitamin C) 1,000 mg tablet 1 g PO DAILY vitamin B complex Tablet 1 tab PO DAILY Fergon 225 mg (27 mg iron) tablet 225 mg PO DAILY Follow up/Referrals: Wendi Gupta DO [Physician] - (Please call on Monday 03/05 to schedule a 6 week appointment.) Diet/Activity/Treatments Diet: Diet as Tolerated Activity: As tolerated. Skin/Wound/Dressing Care Report to your healthcare provider any signs of infection, such as:: chills, fever, increased pain, unusual drainage and unusual redness Visit Report/Discharge Packet Instructions: DI for Labor and Delivery, Vaginal Stand Alone Forms: Patient Portal/API, Stroke Signs & Symptoms Discharge Data Primary Care Provider: Daniel Alicea
== END 2024-03-04 14:15 | disposition home or self-care (01) | DRG 807 ==
PROVIDERS: Admitting Provider Student in an Organized Health Care Education/Training Program; PCP Internal Medicine; Referring Provider Student in an Organized Health Care Education/Training Program; Visit Provider Student in an Organized Health Care Education/Training Program
DX: O60.14X0 Preterm labor third trimester with preterm delivery third trimester, not applicable or unspecified (principal); Z37.0 Single live birth; O70.0 First degree perineal laceration during delivery; Z3A.36 36 weeks gestation of pregnancy
CPT/HCPCS: 36415; 59025; 59050; 59400; 84112; 85025; 86850; 86900; 86901; 87081; 87653; G0379; J1200; J2590

== ENCOUNTER → 2024-03-13 10:55 | Outpatient (CLI) | payer OTHER, SELFPAY | PROVIDERS: PCP Internal Medicine; Visit Provider Obstetrics & Gynecology | DX: O72.1 Other immediate postpartum hemorrhage (principal) | CPT/HCPCS: 87077; 87086; 87186 ==